=== PATIENT | male | born 1995 | race African-American/Black ===

== ENCOUNTER 2017-01-08 18:58 | Emergency (ER) | payer OTHER ==
[~2017-01-08] VITALS: Ht 162.6 cm; Wt 61.2 kg
[~2017-01-08 18:58] MED LIST: ALBUTEROL17 G1 IH; QVAR7.3 G1 INH; SINGULAIR PO; THEO-24200 MG PO
== END 2017-01-08 21:38 | disposition home or self-care (01) ==
LOC: CFTX 18:58 → CED 18:58 → CFTX 19:00
DX: L02.214 Cutaneous abscess of groin (principal); F41.9 Anxiety disorder, unspecified; J45.909 Unspecified asthma, uncomplicated; F17.210 Nicotine dependence, cigarettes, uncomplicated
CPT/HCPCS: 10060; 87070; 87205; 99283